=== PATIENT | male | born 1940 | race Caucasian/White ===

== ENCOUNTER 2016-05-29 07:52 | Day surgery (SDC) | payer MEDICARE ==
--- NOTE | ~2016-05-29 | EGD ---
EGD REPORT [facility] [address] [place] [address] NAME: HARDIK CLINTON : 40 STATUS : REG [facility]#: [id number] AGE: 75 ADM/REG DATE : 05/29/16 MR#: [id number] REPORT SERV DATE: 05/29/16 DICTATED BY: GABRIELA SAMUEL DATE: 05/29/16 REPORT STATUS : Draft TRANSCRIBED BY: [facility] DATE: 05/29/16 [facility] Patient Name: Hardik Clinton Date of : 1940 Attending MD: GABRIELA SAMUEL MD Procedure Date No Time: 05/29/2016 Procedure: Colonoscopy Indications: Personal history of colonic polyps, Last colonoscopy remote past Referring MD: HARDIK Coleman Medicines: Propofol per Anesthesia Complications: No immediate complications. Estimated blood loss: None. Procedure: Pre-Anesthesia Assessment: - After reviewing the risks and benefits, the patient was deemed in satisfactory condition to undergo the procedure. - Prior to the procedure, a History and Physical was performed, and patient medications and allergies were reviewed. The patient's tolerance of previous anesthesia was also reviewed. The risks and benefits of the procedure and the sedation options and risks were discussed with the patient. All questions were answered, and informed consent was obtained. Prior Anticoagulants: The patient has taken Eliquis, last dose was 3 days prior to procedure. ASA Grade Assessment: III - A patient with severe systemic disease. After reviewing the risks and benefits, the patient was deemed in satisfactory condition to undergo the procedure. After I obtained informed consent, the scope was passed under direct vision. Throughout the procedure, the patient's blood pressure, pulse, and oxygen saturations were monitored continuously. The CF [id number] was introduced through the anus and advanced to the terminal ileum, with identification of the appendiceal orifice and IC valve. The colonoscopy was performed without difficulty. The ileocecal valve, appendiceal orifice and terminal ileum were photographed. The patient tolerated the procedure well. The quality of the bowel preparation was adequate. The bowel preparation used was polyethylene glycol (PEG). Scope withdrawal time was greater than 12 minutes. Findings: The perianal and digital rectal examinations were normal. Pertinent negatives include normal sphincter tone. EGD REPORT [address] [address] NAME: HARDIK CLINTON : 40 STATUS : REG [facility] [place] PAT#: [id number] AGE: 75 ADM/REG DATE : 05/29/16 MR#: [id number] REPORT SERV DATE: 05/29/16 DICTATED BY: GABRIELA SAMUEL DATE: 05/29/16 REPORT STATUS : Draft TRANSCRIBED BY: [employer] DATE: 05/29/16 The terminal ileum appeared normal. A sessile polyp was found in the transverse colon. The polyp was 5 mm in size. The polyp was removed with a cold snare. Resection and retrieval were complete. Estimated blood loss: none. A sessile polyp was found in the recto-sigmoid colon. The polyp was 5 mm in size. The polyp was removed with a cold snare. Resection and retrieval were complete. Estimated blood loss: none. The exam was otherwise without abnormality. Impression: - One 5 mm polyp in the transverse colon. Resected and retrieved. - One 5 mm polyp at the recto-sigmoid colon. Resected and retrieved. - The examination was otherwise normal. Recommendation: - Discharge patient to home (ambulatory). - Return to previous diet. - Continue present medications. - Resume Eliquis at prior dose tomorrow. - Await pathology results. - Repeat colonoscopy in 5 years for surveillance. - Patient has a contact number available for emergencies. The signs and symptoms of potential delayed complications were discussed with the patient. Return to normal activities tomorrow. Written discharge instructions were provided to the patient. Procedure Code(s): --- Professional --- 16825, Colonoscopy, flexible, proximal to splenic flexure; with removal of tumor(s), polyp(s), or other lesion(s) by snare technique Diagnosis Code(s): --- Professional --- D12.7, Benign neoplasm of rectosigmoid junction D12.3, Benign neoplasm of transverse colon Z86.010, Personal history of colonic polyps CPT copyright 2013 [employer]. All rights reserved. The codes documented in this report are preliminary and upon junior software developer review may be revised to meet current compliance requirements. GABRIELA SAMUEL MD 05/29/2016 9:35 AM This report has been signed electronically. EGD REPORT [facility] [address] [address] NAME: HARDIK CLINTON : [birth year] STATUS : REG [facility]#: [id number] AGE: 75 ADM/REG DATE : 05/29/16 MR#: [id number] REPORT SERV DATE: 05/29/16 DICTATED BY: GABRIELA SAMULE DATE: 05/29/16 REPORT STATUS : Draft TRANSCRIBED BY: [employer] DATE: 05/29/16 Number of Addenda: 0 Note Initiated On: 05/29/2016 8:55 AM Scope Withdrawal Time 0 hours 12 minutes 8 seconds [address] [address]
[~2016-05-29 07:52] MED LIST: ELIQUIS 5 MG TAB5 MG PO; LOP25 PO
== END 2016-05-29 23:59 | disposition home or self-care (01) ==
LOC: DMU 07:52
PROVIDERS: Internal Medicine Gastroenterology
PROC: 0DBL8ZZ Excision of Transverse Colon, Via Natural or Artificial Opening Endoscopic (ICD-10-PCS; 2016-05-29)
PROC: 0DBN8ZZ Excision of Sigmoid Colon, Via Natural or Artificial Opening Endoscopic (ICD-10-PCS; 2016-05-29)
PROC: 0DBP8ZZ Excision of Rectum, Via Natural or Artificial Opening Endoscopic (ICD-10-PCS; principal; 2016-05-29 08:30)
DX: Z12.11 Encounter for screening for malignant neoplasm of colon (principal); Z86.010 Personal history of colon polyps; D12.3 Benign neoplasm of transverse colon; K62.1 Rectal polyp; I48.91 Unspecified atrial fibrillation; Z79.01 Long term (current) use of anticoagulants; Z79.899 Other long term (current) drug therapy; Z90.49 Acquired absence of other specified parts of digestive tract; Z98.890 Other specified postprocedural states
CPT/HCPCS: 88305